=== PATIENT | male | born 1970 | race Caucasian/White ===

== ENCOUNTER 2020-01-07 15:09 | Outpatient (CLI) | payer OTHER, SELFPAY ==
--- NOTE | 2020-01-07 15:24 | XR_ITS ---
WS: [id number] EYE TECHNIQUE: 2 views of the skull CLINICAL INFORMATION: POSSIBLE METAL IN EAR/R/O FOR MRI COMPARISON: None. FINDINGS: No radiopaque foreign bodies. XR/XR eye foreign body [id number] IMPRESSION: No radiopaque foreign bodies.
== END 2020-01-07 15:10 | disposition home or self-care (01) ==
LOC: RADWPI 15:12
PROVIDERS: Family Provider Physician Assistant; PCP Physician Assistant; Visit Provider Nurse Practitioner Family
DX: Z03.89 Encounter for observation for other suspected diseases and conditions ruled out (principal); Z13.5 Encounter for screening for eye and ear disorders
CPT/HCPCS: 70030

== ENCOUNTER 2022-11-16 17:23 | Emergency (ER) | payer BC, SELFPAY ==
[2022-11-16 17:55] VITALS: BP 148/89; PULSE 60; RESP 18; TEMP 36.7; O2SAT 97; BMI 43.7
--- NOTE | 2022-11-16 18:01 | ECG_ITS ---
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 Measurements Intervals [place] Rate: 61 P: 51 [place]: 174 QRS: 38 QRSD: 118 T: 45 QT: 415 QTc: 420 Interpretive Statements SINUS RHYTHM MODERATE INTRAVENTRICULAR CONDUCTION DELAY [110+ ms QRS DURATION] ST ELEVATION, PROBABLY EARLY REPOLARIZATION [ST ELEVATION WITH NORMALLY INFLECTED T-WAVE] Compared to ECG 11/11/2014 06:37:12 Intraventricular conduction delay now present ST (T wave) deviation now present Early repolarization now present Myocardial infarct finding no longer present Electronically Signed On 11-17-2022 0:33:55 CDT by Hailey Hill M.D. [id number]
--- NOTE | 2022-11-16 18:44 | XRR_ITS ---
PROCEDURE INFORMATION: Exam: XR Chest Exam date and time: 11/16/2022 6:51 PM Age: 52 years old Clinical indication: Other: Dizzy; Additional info: Palpitations TECHNIQUE: Imaging protocol: Radiologic exam of the chest. Views: 1 view. COMPARISON: No relevant prior studies available. FINDINGS: Lungs: Unremarkable. No consolidation. Pleural spaces: Unremarkable. No pleural effusion. No pneumothorax. Heart/Mediastinum: Unremarkable. No cardiomegaly. Bones/joints: Unremarkable for age. XR/XR chest 1V portable [id number] IMPRESSION: Negative chest
[2022-11-16 19:10] LABS: Basophils # 0.1 10^3/uL (0.0-0.1); Basophils % 0.4 %; Eosinophils # 0.1 10^3/uL (0.0-0.8); Eosinophils % 0.9 %; Hemoglobin 15.7 g/dL (11.7-16.6); Lymphocytes # 2.5 10^3/uL (0.8-4.8); Lymphocytes % 21.3 %; Mean Corpuscular HGB Conc 33.4 g/dL (30.0-36.0); Mean Corpuscular Hemoglobin 28.8 pg (28.0-34.0); Mean Corpuscular Volume 86.1 fl (80-94); Mean Platelet Volume 9.5 fL (7.4-10.4); Monocytes # 1.1 10^3/uL (0.2-0.9); Monocytes % 9.6 %; Neutrophils # 7.82 10^3/uL (1.8-7.7); Neutrophils % 67.4 %; Nucleated Red Blood Cells % 0 %; Platelet Count 241 10^3/cmm (130-400); Red Blood Count 5.46 10^6/uL (4.1-5.3); Red Cell Distribution Width 12.1 % (12.1-15.1); White Blood Count 11.6 10^3/uL (4.0-10.0)
[2022-11-16 19:12] VITALS: BP 126/69; PULSE 60; RESP 19; O2SAT 98
[2022-11-16 19:19] LABS: INR 0.95 (0.8-1.2)
[2022-11-16 19:21] LABS: Troponin(5th) Baseline 7 ng/L (0-15)
[2022-11-16 19:26] LABS: Alanine Aminotransferase 48 U/L (0-41); Albumin Level 4.7 g/dL (3.5-5.2); Alkaline Phosphatase 70 U/L (40-130); Aspartate Amino Transferase 29 U/L (0-40); Blood Urea Nitrogen 12 mg/dL (6-20); Calcium 9.2 mg/dL (8.5-10.5); Carbon Dioxide 24 mmol/L (22-29); Chloride 97 mmol/L (98-107); Globulin 3.1 g/dL (1.3-4.6); Glucose 110 mg/dL (65-115); Osmolality Calculated 278 mOsm/kg (285-295); Sodium 134 mmol/L (136-145); Total Bilirubin 0.5 mg/dL (0.15-1.2); Total Protein 7.8 g/dL (6.6-8.7)
--- NOTE | 2022-11-16 19:38 | PC.NURSE ---
to room. pt relates he is anxious about things when his monitor goes off. I explained to him that his vitals look great at this time and gave an update on testing. I told him that I am right outside and that if anything changes, to hit his call light and I will be back in to check on him.
[2022-11-16 19:40] VITALS: BP 147/83; PULSE 64; RESP 17; O2SAT 100
--- NOTE | 2022-11-16 19:58 | W.ED.ARRPALP ---
HPI - Arrhythmia/Palpitations General: Chief Complaint: Arrhythmia/Palpitations Stated Complaint: High BP, Dizzy, Left Arm numb, blurry vision Time Seen by Provider: 11/16/22 19:07 Source: patient and family Mode of arrival: ambulatory Limitations: no limitations History of Present Illness: Made his way to our emergency department because he is concerned about a episode where he felt like he was kind of stressed and had a what he calls a panic attack. He had an association of the those symptoms with what he felt like was some pressure in his chest and may be some numbness in his left upper arm. He states the symptoms lasted approximately 30 minutes and stopped approximately 5 PM this evening. He has not had any recurrence since that time. He states he has had a history of occasional PVC but this was different than that. He denies any associated nausea, diaphoresis, shortness of breath. He does drink quite a bit of caffeine daily and admits to increased stress and bad news today which precipitated the event he thinks. He chews tobacco. He does not drink alcohol. Denies energy drinks or any other stimulants to include street drugs. No known history of cardiovascular disease other than hypertension. He feels at his baseline at this time. Associated symptoms: Reports anxiety; Deny nausea, pre-syncope, syncope or vomiting Review of Systems Const: Denies: fever(s) or chills ENMT: Denies: throat pain or odynophagia Card: Reports: palpitations and lightheadedness; Denies: syncope or pre-syncope Resp: Denies: dyspnea, productive cough or non-productive cough GI: Denies: abdominal pain, nausea, vomiting or diarrhea : Denies: difficulty urinating or dysuria Musc: Denies: neck pain, back pain, extremity pain or extremity swelling Skin/Breast: Denies: rash Neuro: Denies: headache(s), numbness in extremities or weakness in extremities Psych: Reports: anxiety and panic attacks Endo: Denies: polyuria or polydipsia Physical Exam Narrative: EXAM NARRATIVE: The patient is comfortable and interactive during our interview. Answers questions in a goal-directed fashion and makes good eye contact. Appears to be calm Const: COMMON NORMALS: no acute distress and patient oriented x3 GENERAL APPEARANCE: cooperative, comfortable and well kempt NUTRITIONAL APPEARANCE: overweight ORIENTATION/CONSCIOUSNESS: Yes awake and Yes oriented to person HENMT: COMMON NORMALS: normocephalic, atraumatic, moist oral mucous membranes and oropharynx normal HEAD & SCALP: normocephalic and atraumatic FACE & SINUS: normal facial exam Eye: COMMON NORMALS: Equal, round and reactive pupils present, EOMs intact bilaterally and conjunctivae normal CONJUNCTIVA: Yes conjunctivae normal PUPIL: Yes Equal, round and reactive pupils present Neck/C-Spine: COMMON NORMALS: full ROM, no lymphadenopathy, no JVD, Thyroid normal and No carotid bruits THYROID: Thyroid normal Chest: COMMONS NORMALS: normal inspection of the chest and normal palpation of entire chest wall Resp: COMMON NORMALS: normal respiratory effort, No retractions, No use of accessory muscles and clear to auscultation bilaterally AUSCULTATION: clear to auscultation bilaterally Cardio: COMMON NORMALS: no JVD, regular rate, regular rhythm, No murmurs present (Cardio) and Peripheral pulses 2+ throughout RATE: regular rate RHYTHM: regular rhythm PERIPHERAL PULSES: Peripheral pulses 2+ throughout GI: COMMON NORMALS: Normal to inspection, nondistended, normoactive bowel sounds present, Soft to palpation and non-tender PALPATION: Yes Soft to palpation : COMMON NORMALS: Yes no CVA tenderness BLADDER/KIDNEY EXAM: Yes no CVA tenderness Back/Pelvis: COMMON NORMALS: no CVA tenderness, thoraco-lumbar ROM normal and straight leg raise negative bilaterally Extremity: COMMON NORMALS: normal to inspection, full ROM, no calf tenderness and no pedal edema Neuro: COMMON NORMALS: patient oriented x3, moves all extremities, no focal motor deficits and no sensory deficits noted SENSORIUM/ORIENTATION: Yes oriented to person Psych: COMMON NORMALS: mental status grossly normal APPEARANCE: Yes well kempt Skin: COMMON NORMALS: no rashes or lesions noted, turgor normal and no jaundice GENERAL SKIN EXAM: no rashes or lesions noted and turgor normal Course Reevaluation(s): Reevaluation #1: Patient is continue to remain stable and pain-free without any evidence of arrhythmias, abnormal vital signs or other new or focal findings on repeat evaluation while in the emergency department. Time: 21:00 Vital Signs: Vital signs: Vital Signs Temperature 98.0 F 11/16/22 17:55 Pulse Rate 56 L 11/16/22 21:15 Respiratory Rate 17 11/16/22 21:15 Blood Pressure 147/83 11/16/22 19:40 Pulse Oximetry 97 11/16/22 21:15 Oxygen Delivery Me thod 11/16/22 19:40 MDM - Arrhythmia/Palpitations Medical Decision Making This patient with a known prior history of cardiovascular disease came to the emergency room because he was concerned about episode of stress related chest pressure, sensation of irregular heartbeat and seemingly some left upper arm discomfort. He states the symptoms persisted for probably 30 minutes or so prior to arrival. He is had a history of anxiety and again the episode today was related with significant emotional stress. He is a caffeine user but denies any other stimulants to include street drugs etc. Clinical examination is reassuring assuring without any evidence of stigmata of concerning clinical condition on presentation. Ancillary studies were undertaken to ensure no evidence of ACS, arrhythmias etc. He was felt to be helped low risk for other potential causes of his symptoms based upon his clinical presentation. His serial troponins were reassuring as well as serial EKGs mitigating against any evidence that suggested ACS. Chest x-ray was also reassuring. Patient had no sustained symptoms and no other findings during his emergency department stay. It was felt that his symptoms are likely related to stress, anxiety, his exacerbation of his prior history of palpitations. Again he did not display any sustained arrhythmias in the emergency department. [place] to be stable to be discharged with outpatient follow-up as indicated by clinical symptoms etc. He voiced understanding of our discussion in detail and was appreciative of care. Differential Diagnosis Likely palpitations and anxiety Medical Records I reviewed the patient's medical records. Lab Data I reviewed the patient's lab results. 11/16/22 18:47 11/16/22 18:47 Radiology Impressions Chest X-Ray 11/16/22 18:44 IMPRESSION: Negative chest Laboratory Results WBC 11.6 10^3/uL (4.0-10.0) H 11/16/22 18:47 RBC 5.46 10^6/uL (4.1-5.3) H 11/16/22 18:47 Hgb 15.7 g/dL (11.7-16.6) 11/16/22 18:47 Hct 47.0 % (42.0-52.0) 11/16/22 18:47 MCV 86.1 fl (80-94) 11/16/22 18:47 MCH 28.8 pg (28.0-34.0) 11/16/22 18:47 MCHC 33.4 g/dL (30.0-36.0) 11/16/22 18:47 RDW 12.1 % (12.1-15.1) 11/16/22 18:47 Plt Count 241 10^3/cmm (130-400) 11/16/22 18:47 MPV 9.5 fL (7.4-10.4) 11/16/22 18:47 Neut % (Auto) 67.4 % 11/16/22 18:47 Lymph % (Auto) 21.3 % 11/16/22 18:47 [place] % (Auto) 9.6 % 11/16/22 18:47 Eos % (Auto) 0.9 % 11/16/22 18:47 Baso % (Auto) 0.4 % 11/16/22 18:47 Neut # (Auto) 7.82 10^3/uL (1.8-7.7) H 11/16/22 18:47 Lymph # (Auto) 2.5 10^3/uL (0.8-4.8) 11/16/22 18:47 [place] # (Auto) 1.1 10^3/uL (0.2-0.9) H 11/16/22 18:47 Eos # (Auto) 0.1 10^3/uL (0.0-0.8) 11/16/22 18:47 Baso # (Auto) 0.1 10^3/uL (0.0-0.1) 11/16/22 18:47 Nucleated RBC % (auto) 0 % 11/16/22 18:47 Nucleated RBCs # 0.0 /100WBC 11/16/22 18:47 PT 13.00 SECONDS (12.1-14.9) 11/16/22 18:47 INR 0.95 (0.8-1.2) 11/16/22 18:47 Sodium 134 mmol/L (136-145) L 11/16/22 18:47 Potassium 4.0 mmol/L (3.5-5.1) 11/16/22 18:47 Chloride 97 mmol/L (98-107) L 11/16/22 18:47 Carbon Dioxide 24 mmol/L (22-29) 11/16/22 18:47 Anion Gap 17.0 (5-19) 11/16/22 18:47 BUN 12 mg/dL (6-20) 11/16/22 18:47 Creatinine 0.9 mg/dL (0.7-1.2) 11/16/22 18:47 GFR Calculation 89.0 mL/min (90-130) L 11/16/22 18:47 Glucose 110 mg/dL (65-115) 11/16/22 18:47 Calculated Osmolality 278 mOsm/kg (285-295) L 11/16/22 18:47 Calcium 9.2 mg/dL (8.5-10.5) 11/16/22 18:47 Total Bilirubin 0.5 mg/dL (0.15-1.2) 11/16/22 18:47 AST 29 U/L (0-40) 11/16/22 18:47 ALT 48 U/L (0-41) H 11/16/22 18:47 Alkaline Phosphatase 70 U/L (40-130) 11/16/22 18:47 Troponin T Baseline 7 ng/L (0-15) 11/16/22 18:47 Troponin T 120 Minute 7.08 ng/L (0-15) 11/16/22 20:38 Total Protein 7.8 g/dL (6.6-8.7) 11/16/22 18:47 Albumin 4.7 g/dL (3.5-5.2) 11/16/22 18:47 Globulin 3.1 g/dL (1.3-4.6) 11/16/22 18:47 EKG Data EKG 1: I personally reviewed and interpreted this EKG as follows: Interpretation: Resting rate of 61 bpm. Normal intervals, normal axis and to include FL, corrected QT interval. No acute ST-T wave changes present suggest ischemic changes at this time. Other EKG comments: Chest X-Ray 11/16/22 18:44 IMPRESSION: Negative chest EKG 2: I personally reviewed and interpreted this EKG as follows: Interpretation: Contemporaneous review of second EKG this evaluation reveals ventricular rate of 50 bpm consistent with sinus bradycardia. He has normal FL interval, QRS duration, corrected QT interval. Normal axis. No evidence of acute ST-T wave changes suggestive of ischemia at this time and no change from prior EKG this visit. Other EKG comments: Chest X-Ray 11/16/22 18:44 IMPRESSION: Negative chest Discharge Plan Discharge Patient Disposition: Home Clinical Impression: Palpitations, Anxiety Condition: Stable Discharge Orders: Discharge ED (Routine); Ordered 11/16/22 Ordered By: Florian Coates Referrals: Antoinette Johnson PA [Primary Care Provider] - Discharge Diet: Usual diet and Low Salt Discharge Activity: Increase activity as tolerated Patient Instructions: Opioid Safety, Pain Management Activity Restrictions/Additional Instructions: As we discussed while you are in the emergency department we did not find any evidence that suggest that you may have had a heart attack or other concerning issues during your episode today. This certainly suggest possibly anxiety related symptoms however should you develop recurrent similar symptoms, fatigue chest pain shortness of breath with activity or any other concerning findings return to this or the nearest emergency department as well as follow-up with your doctor for consideration of additional testing as indicated such as a stress test etc. We also recommend reducing caffeine intake if it tends to contribute to your symptoms of extra heartbeats and/or anxiousness. Coding Level of Care Code ED Director Corporate Sales for Chito Melvin
--- NOTE | 2022-11-16 21:00 | ECG_ITS ---
[facility] Test Date: 2022-11-16 Pat Name: Sterling Sandoval Department: Room: Gender: Male Partner: : 1970 Requested By: Rio Tsang Order Number: [id number] [place] MD: Hailey Hill M.D. Measurements Intervals [place] Rate: 50 P: 62 [place]: 160 QRS: 59 QRSD: 113 T: 36 QT: 443 QTc: 406 Interpretive Statements SINUS BRADYCARDIA POSSIBLE INFERIOR MYOCARDIAL INFARCTION , PROBABLY OLD [30 ms Q WAVE IN II/aVF] Compared to ECG 11/16/2022 18:07:05 Myocardial infarct finding now present Sinus rhythm no longer present Intraventricular conduction delay no longer present ST (T wave) deviation no longer present Early repolarization no longer present Electronically Signed On 11-17-2022 0:56:26 CDT by Hailey Hill M.D. [id number]
[2022-11-16 21:15] VITALS: PULSE 56; RESP 17; O2SAT 97
[2022-11-16 21:15] LABS: Troponin 5 2HR 7.08 ng/L (0-15)
[2022-11-16 21:44] LABS: Troponin 5 2HR Delta 0.08 ABS# (0-10)
== END 2022-11-16 21:43 | disposition home or self-care (01) ==
PROVIDERS: Emergency Medicine; Emergency Provider Emergency Medicine; PCP Physician Assistant
DX: F41.9 Anxiety disorder, unspecified (principal); R00.2 Palpitations
CPT/HCPCS: 36415; 71045; 80053; 84484; 85025; 85610; 93005; 99285